=== PATIENT | male | born 1995 | race African-American/Black ===

== ENCOUNTER 2017-09-06 15:20 | Emergency (ER) | payer OTHER ==
[~2017-09-06] VITALS: Ht 182.9 cm; Wt 79.5 kg
[2017-09-06 15:32] VITALS: BP 154/69; TEMP 99.1
[2017-09-06] MEDS ORDERED: TAMIFLU 75MG75 MG PO (17:27)
[2017-09-06 17:38] VITALS: PULSE 70
== END 2017-09-06 17:39 | disposition home or self-care (01) ==
LOC: COL.ER 15:20
DX: J10.1 Influenza due to other identified influenza virus with other respiratory manifestations (principal)